=== PATIENT | male | born 1970 | race Caucasian/White ===

== ENCOUNTER → 2016-12-02 | Outpatient (CLI) | payer BC ==
--- NOTE | 2016-12-02 14:34 | XR ---
EXAMINATION TYPE: XR abdomen 1V DATE OF EXAM: 12/02/2016 COMPARISON: NONE HISTORY: Right-sided kidney stone TECHNIQUE: One view abdominal series FINDINGS: The osseous structures are intact. The bowel gas pattern is nonspecific. Calcification in the pelvis is likely vascular. Overlying bowel content obscures the renal outlines. However, there is a calcification centrally with in the left kidney measuring 5.7 mm. Punctate 2 mm calcification suspected within the right kidney. IMPRESSION: 1. Bilateral nephrolithiasis.
== END | disposition home or self-care (01) ==
LOC: RADXRMAIN 13:53
PROVIDERS: ATTEND Internal Medicine
DX: N20.0 Calculus of kidney (principal)
CPT/HCPCS: 74000

== ENCOUNTER → 2016-12-15 | Outpatient (CLI) | payer BC ==
--- NOTE | 2016-12-15 10:43 | CT ---
EXAMINATION TYPE: CT abdomen pelvis wo con DATE OF EXAM: 12/15/2016 COMPARISON: NONE HISTORY: Renal stone CT DLP: 393.10 mGycm Automated exposure control for dose reduction was used. TECHNIQUE: Helical acquisition of images was performed from the lung bases through the pelvis. FINDINGS: Lack of intravenous and oral contrast limits evaluation of both the solid and hollow viscer a. LUNG BASES: No significant abnormality is appreciated. LIVER/GB: No significant abnormality is appreciated. No evidence of radiopaque cholelithiasis. No int rahepatic biliary ductal dilatation. No evidence of hepatic steatosis. PANCREAS: No significant abnormality is seen. SPLEEN: No significant abnormality is seen. Subcentimeter splenule is seen adjacent to the [place] spl een. A benign finding. ADRENALS: No significant abnormality is seen. KIDNEYS: Within the right renal pelvis there is a 0.9 cm nonobstructing renal calculus as there is no evidence of hydronephrosis. Minimal uroepithelial thickening is also appreciated suggestive of react anastacia inflammatory change. Additionally within the right midpole there is a 4 mm calculus and within th e inferior pole there is a 2 mm nonobstructing calculus. No left-sided renal calculi are seen. FREE AIR: No free air is visualized ADENOPATHY: No greater than 1 cm short axis lymph nodes within the abdomen or pelvis. OSSEOUS STRUCTURES: Nonspecific sclerotic focus within the left iliac bone measures 9 mm on series 3 image 123. Smaller probable bone island is seen within the left iliac bone on series 3 image 134. Pun ctate probable bone islands are also noted within the right ischium and femoral heads. BOWEL: Few scattered sigmoid diverticula are present without pericolonic fat stranding. Moderate fei unt of retained stool is seen throughout the nondilated colon. Appendix is retrocecal and within norm al limits of size without periappendiceal fat stranding. OTHER: Diastases recti is seen with a 2 mm fat filled umbilical hernia. Abdominal aorta is of normal course and caliber. IMPRESSION: 1. THERE IS A 0.9 CM NONOBSTRUCTING RIGHT CALCULUS WITHIN THE RENAL PELVIS CREATING MINIMAL LIKELY RE ACTIVE UROEPITHELIAL THICKENING. ADDITIONAL NONOBSTRUCTIVE 4 MM AND 2 MM RIGHT RENAL CALCULI ARE SEEN . NO LEFT RENAL CALCULI. 2. FEW SCATTERED SIGMOID DIVERTICULA WITHOUT EVIDENCE OF ACUTE DIVERTICULITIS. 3. MULTIPLE NONSPECIFIC SCLEROTIC FOCI THAT MAY REPRESENT BONE ISLANDS WITHIN THE PELVIS.
== END | disposition home or self-care (01) ==
LOC: RADCTMAIN 09:41
PROVIDERS: ATTEND Urology
DX: N20.2 Calculus of kidney with calculus of ureter (principal); K57.30 Diverticulosis of large intestine without perforation or abscess without bleeding
CPT/HCPCS: 74176

== ENCOUNTER → 2017-01-20 | Outpatient (CLI) | payer BC ==
--- NOTE | 2017-01-20 09:37 | XR ---
EXAMINATION TYPE: XR KUB DATE OF EXAM: 01/20/2017 9:26 AM CLINICAL HISTORY: Recent right-sided lithotripsy TECHNIQUE: Single supine KUB image of the abdomen is obtained. COMPARISON: CT abdomen pelvis dated 12/15/2016 FINDINGS: The previously seen right renal calculus at the ureteropelvic junction has been surgically removed by lithotripsy. The other punctate right renal calculi measuring 4 and [address] mm [address] the recent CT of 12/15/2016 are not visualized, possibly due to technique or overlying bowel. No left-sided calculi are seen. Phleboliths are noted within the low right hemipelvis. Minimal degenerative changes of the thoracolumbar spine and femoral acetabular joints. Scattered gas is seen in non-distended small bowel loops. Gas and fecal material is seen in non-distended colon. IMPRESSION: 1. Nonvisualization of the previous obstructing 9 mm right ureteropelvic junction calculus due to the recent lithotripsy. Of note the remaining 4 and 3 mm right renal calculi are also not visualized, po ssibly due to technique or overlying bowel. No left renal calculi are noted. 2. Nonobstructive bowel gas pattern.
== END ==
LOC: RADXRMAIN 09:09
PROVIDERS: ATTEND Urology
DX: N20.0 Calculus of kidney (principal)
CPT/HCPCS: 74000

== ENCOUNTER → 2021-09-17 | Outpatient (CLI) | payer BC ==
--- NOTE | 2021-09-17 13:24 | XR ---
EXAMINATION TYPE: XR KUB DATE OF EXAM: 09/17/2021 Comparison: 01/20/2017 Clinical History: 51-year-old male complaining of right-sided kidney stone and hematuria, N200 Findings: Right-sided pelvic phleboliths are unchanged. Vague 1.1 cm calcification right paramedian mid abdomen . Nonobstructive bowel gas pattern. Mild overall stool burden. Impression: Vague 1.1 cm calcification right paramedian mid abdomen could be within the renal collecting system o r upper ureter. Clinically correlate.
== END | disposition home or self-care (01) ==
LOC: RADXRMAIN 09:58
PROVIDERS: ATTEND Urology
DX: N28.89 Other specified disorders of kidney and ureter (principal)
CPT/HCPCS: 74018

== ENCOUNTER → 2021-09-21 | Outpatient (CLI) | payer BC ==
[2021-09-21 15:14] LABS: Basophils # (A) 0.06 X 10*3/uL (0.00-0.10); Basophils % (A) 1.1 %; Eosinophils # (A) 0.31 X 10*3/uL (0.04-0.35); Eosinophils % (A) 5.7 %; HGB 14.4 g/dL (13.0-17.0); Immature Grans, Automated 0.2 %; Lymphocytes # (A) 1.94 X 10*3/uL (0.90-5.00); Lymphocytes % (A) 35.6 %; MCHC 32.7 g/dL (32.0-37.0); MCV 94.8 fL (80.0-97.0); Mean Platelet Volume 10.7 fL (9.5-12.2); Monocytes # (A) 0.38 X 10*3/uL (0.20-1.00); NRBC Per 100 WBC 0 /100 WBCS (0.0-0.0); Neutrophils # (A) 2.75 X 10*3/uL (1.80-7.70); Neutrophils % (A) 50.4 %; Platelet Count 227 X 10*3/uL (140-440); RBC 4.64 X 10*6/uL (4.40-5.60); RDW 12.5 % (11.5-14.5); WBC 5.45 X 10*3/uL (4.50-10.00)
[2021-09-21 15:19] LABS: African American GFR (CKD) 104.6 (60.0-200.0); Anion Gap 10.2 mmol/L (10.00-18.00); BUN/Creat Ratio 11.95 Ratio (12.00-20.00); Blood Urea Nitrogen 11.5 mg/dL (9.0-27.0); Calcium 9.6 mg/dL (8.7-10.3); Carbon Dioxide 25.9 mmol/L (20.0-27.5); Non-African American GFR(CKD) 90.3 (60.0-200.0); Potassium 4.5 mmol/L (3.5-5.5)
== END | disposition home or self-care (01) ==
LOC: LABPAT 08:25
PROVIDERS: ATTEND Urology
DX: Z01.812 Encounter for preprocedural laboratory examination (principal); N20.0 Calculus of kidney
CPT/HCPCS: 80048; 85025

== ENCOUNTER 2021-09-27 07:08 | Day surgery (SDC) | payer BC ==
[2021-09-23 10:09] VITALS: BMI 23.6
--- NOTE | 2021-09-26 21:53 | P.GSHP ---
History of Present Illness H&P Date: 09/26/21 Chief Complaint: Right flank pain The patient is a 51-year-old white male with a history of calcium oxalate urolithiasis. He has previously undergone ESWL on 2 occasions. He presents with a several month history of right flank discomfort. KUB x-ray reveals an 11 mm right renal pelvic calculus. Alternative treatment options were reviewed and he has elected to undergo ESWL. - Constitutional Constitutional: Denies chills, Denies fever - Gastrointestinal Gastrointestinal: Reports nausea, Denies vomiting - Genitourinary (Male) Genitourinary: Reports flank pain, Reports kidney stones Past Medical History Past Medical History: Cancer, Hypertension Additional Past Medical History / Comment(s): HX SKIN CANCER ON NECK. KIDNEY STONES. HTN-UNDER CONTROL AT THIS TIME History of Any Multi-Drug Resistant Organisms: None Reported Past Surgical History: Orthopedic Surgery Additional Past Surgical History / Comment(s): LT SHOULDER SX. COLONOSCOPY. LITHOTRIPSY X 2. SKIN CANCER REMOVED FROM NECK AREA Past Anesthesia/Blood Transfusion Reactions: No Reported Reaction Smoking Status: Never smoker - Past Family History Mother Family Medical History: No Reported History Medications and Allergies Home Medications Medication Instructions Recorded Confirmed Type No Known Home Medications 09/23/21 09/23/21 History Allergies Allergy/AdvReac Type Severity Reaction Status Date / Time No Known Allergies Allergy Verified 09/23/21 10:00 Surgical - Exam - General well developed, well nourished, no distress - Neck no masses, trachea midline - Respiratory normal respiratory effort - Abdomen Abdomen: soft, non tender, no guarding, no rigid, no rebound - Psychiatric oriented to time, oriented to person, oriented to place, speech is normal, memory intact Results - Imaging Abdominal x-ray: report reviewed, image reviewed Assessment and Plan (1) Calculus of kidney Status: Acute Code(s): N20.0 - CALCULUS OF KIDNEY SNOMED Code(s): 98332875 Plan: Right ESWL, to be performed by Dr. Li. The patient understands the procedure and is aware of potential risks, which include anesthesia, renal contusion, perinephric hematoma, treatment failure, incomplete fragmentation, and Steinstrasse. He is also aware of the possible need for secondary treatment.
[2021-09-27] MEDS ORDERED: ONDANSETRON 4 MG/2 ML VIAL IVP PRN (07:53)
[2021-09-27] MEDS ORDERED: HYDROmorphone 0.5 MG/0.5 ML SYRINGE IVP PRN (07:53)
[2021-09-27] MEDS ORDERED: DEXAMETHASONE SOD PHOSPHATE 4 MG/ML 1 ML VIAL IV ONE (07:53)
[2021-09-27] MEDS ORDERED: LIDOCAINE 1% (10MG/ML) FOR IV START INTRADERMA PRN (07:53)
[2021-09-27] MEDS ORDERED: LACTATED RINGERS 1,000 ML IV SCH (07:53)
--- NOTE | 2021-09-27 07:55 | XR ---
EXAMINATION TYPE: XR KUB DATE OF EXAM: 09/27/2021 7:31 AM INDICATION: Patient age:Male; 51 years old; Reason for study: N20.0; COMPARISON: 09/17/2021, CT abdomen pelvis 12/15/2016. TECHNIQUE: One radiographic view of the abdomen was obtained. FINDINGS: Unchanged location of 2 calcifications within the right pelvis. The 2 calcific densities pr ojecting over the right renal pelvis remains unchanged measuring 12 mm. Additional smaller densities also seen measuring 2 mm. These 2 densities projecting of the kidney were seen back in 2017 however t here may be minimally larger today given differences in technique. Nonobstructive bowel gas pattern. IMPRESSION: 1. Redemonstration of 2 renal collecting system calculi which are stable in position and mildly incr eased in size from 2017. 2. 2 calcific densities within the pelvis are also stable in size and position from 2017 CT.
[2021-09-27 08:01] VITALS: TEMP 98.2
[2021-09-27] MEDS ORDERED: GLYCOPYRROLATE 0.2 MG/ML 2 ML VIAL ONE (08:12)
[2021-09-27] MEDS ORDERED: MIDAZOLAM 2 MG/2 ML VIAL ONE (08:12)
[2021-09-27] MEDS ORDERED: KETAMINE 10 MG/ML 20 ML VIAL ONE (08:12)
[2021-09-27] MEDS ORDERED: fentaNYL (PF) 50 MCG/ML 2 ML AMP ONE (08:12)
[2021-09-27] MEDS ORDERED: PROPOFOL 10 MG/ML 20 ML VIAL IV ONE (08:12)
--- NOTE | 2021-09-27 08:46 | P.OP ---
Date of Procedure: 09/27/21 Preoperative Diagnosis: Right renal stone Postoperative Diagnosis: Same Procedure(s) Performed: Extracorporeal shockwave lithotripsy, 2500 shocks at energy level IV Anesthesia: MAC Surgeon: Johnny Li Pathology: none sent Condition: stable Disposition: PACU Indications for Procedure: Patient is 51. He has a history of stones. He has a 1 cm right renal pelvic stone. He comes for shockwave lithotripsy Description of Procedure: The patient is brought to the operative suite. On the lithotripsy table is given IV sedation. The stone was seen in 2 views of fluoroscopy. With the Dornier compact delta 2 lithotripter 2500 shocks at energy level IV administered. The stone fractures nicely. Then the procedure the patient awakened and returned recovery room good condition. He'll be discharged home upon recovery and follow-up in the office in one week with KUB
[2021-09-27 10:15] VITALS: BP 131/90; PULSE 52; RESP 18
== END 2021-09-27 10:37 | disposition home or self-care (01) ==
LOC: ORWHC2ENDO 07:08
PROVIDERS: ATTEND Urology
DX: N20.0 Calculus of kidney (principal); I10 Essential (primary) hypertension; Z85.828 Personal history of other malignant neoplasm of skin; Z79.899 Other long term (current) drug therapy
CPT/HCPCS: 74018; 50590; J2250; J1100; J2405; J3010; J2704

== ENCOUNTER 2021-09-27 13:31 | Emergency (ER) | payer BC ==
[2021-09-27 13:59] VITALS: PULSE 78
[2021-09-27] MEDS ORDERED: HYDROmorphone 0.5 MG/0.5 ML SYRINGE IVP STA (14:06)
[2021-09-27] MEDS ORDERED: SODIUM CHLORIDE 0.9% 500 ML 500 ML IV STA (14:06)
[2021-09-27] MEDS ORDERED: ONDANSETRON 4 MG/2 ML VIAL IVP STA (14:06)
[2021-09-27 14:28] LABS: Basophils % (A) 0 %; Eosinophils % (A) 0 %; HCT 43.6 % (39.0-53.0); HGB 14.3 gm/dL (13.0-17.5); Lymphocytes # (A) 0.6 k/uL (1.0-4.8); Lymphocytes % (A) 5 %; MCH 31.4 pg (25.0-35.0); MCHC 32.8 g/dL (31.0-37.0); MCV 95.7 fL (80.0-100.0); Mean Platelet Volume 7.5; Monocytes # (A) 0.1 k/uL (0-1.0); Monocytes % (A) 1 %; Neutrophils # (A) 10.3 k/uL (1.3-7.7); Neutrophils % (A) 93 %; Platelet Count 202 k/uL (150-450); RBC 4.55 m/uL (4.30-5.90); RDW 12.3 % (11.5-15.5); WBC 11.1 k/uL (3.8-10.6)
[2021-09-27 14:40] LABS: ALT 13 U/L (4-49); AST 22 U/L (17-59); African American GFR (CKD) >90 (>60 ml/min/1.73 sqM); Albumin 4.7 g/dL (3.5-5.0); Alkaline Phosphatase 91 U/L (38-126); Anion Gap 9 mmol/L; Blood Urea Nitrogen 13 mg/dL (9-20); Calcium 9.4 mg/dL (8.4-10.2); Carbon Dioxide 25 mmol/L (22-30); Chloride 101 mmol/L (98-107); Glucose 143 mg/dL (74-99); Non-African American GFR(CKD) >90 (>60 ml/min/1.73 sqM); Potassium 4.5 mmol/L (3.5-5.1); Sodium 135 mmol/L (137-145); Total Bilirubin 0.5 mg/dL (0.2-1.3); Total Protein 7.5 g/dL (6.3-8.2)
[2021-09-27 14:42] LABS: Partial Thromboplastin Time 23.1 sec (22.0-30.0); Prothrombin Time 10.6 sec (9.0-12.0)
--- NOTE | 2021-09-27 14:51 | ED ---
General Adult HPI - General Chief complaint: Recheck/Abnormal Lab/Rx Stated complaint: Post surgical pain Time Seen by Provider: 09/27/21 14:04 Source: patient, RN notes reviewed, old records reviewed Mode of arrival: ambulatory Limitations: no limitations - History of Present Illness Initial comments: 51-year-old male presenting for evaluation of severe right flank pain. Patient had lithotripsy performed for a large right renal stone. Patient states that he has had increased pain since the procedure. Patient's states this was an 11 millimeter stone. No fever. He's had nausea on his been unable to take his medication. - Related Data Previous Rx's Medication Instructions Recorded HYDROcodone/APAP 5-325MG [[place] 1 tab PO Q4HR PRN #10 tab 09/27/21 5-325] Tamsulosin [Flomax] 0.4 mg PO DAILY #10 cap 09/27/21 Allergies Allergy/AdvReac Type Severity Reaction Status Date / Time No Known Allergies Allergy Verified 09/27/21 16:00 Review of Systems ROS Statement: Those systems with pertinent positive or pertinent negative responses have been documented in the HPI. ROS Other: All systems not noted in ROS Statement are negative. Past Medical History Additional Past Medical History / Comment(s): kidney stones General Exam Limitations: no limitations General appearance: alert, in no apparent distress Head exam: Present: atraumatic, normocephalic Eye exam: Present: normal appearance, PERRL Neck exam: Present: normal inspection Respiratory exam: Present: normal lung sounds bilaterally. Absent: respiratory distress, wheezes Cardiovascular Exam: Present: regular rate, normal rhythm GI/Abdominal exam: Present: soft. Absent: distended, tenderness, guarding Extremities exam: Present: normal inspection, normal capillary refill. Absent: pedal edema Back exam: Present: CVA tenderness (R) Neurological exam: Present: alert, oriented X3 Psychiatric exam: Present: normal affect, normal mood Skin exam: Present: warm, dry, intact. Absent: cyanosis, diaphoretic Course Vital Signs 09/27/21 13:56 Temperature 98.7 F Pulse Rate 78 Respiratory 28 H Rate Blood Pressure 140/81 O2 Sat by Pulse 98 Oximetry - Consultations Consultation #1: Case discussed with Dr. Li . Medical Decision Making - Medical Decision Making 51-year-old male with right flank pain after lithotripsy. Patient given IV pain medication at the onset. Laboratory studies obtained. I did discuss case with Dr. Li no need for imaging at this time. Patient reevaluated, resting comfortably, pain completely resolved. He does have pain medication at home currently. Stable for discharge. - Lab Data Result diagrams: 09/27/21 14:19 09/27/21 14:19 Lab Results 09/27/21 09/27/21 09/27/21 Range/Units 14:19 14:19 14:19 WBC 11.1 H (3.8-10.6) k/uL RBC 4.55 (4.30-5.90) m/uL Hgb 14.3 (13.0-17.5) gm/dL Hct 43.6 (39.0-53.0) % MCV 95.7 (80.0-100.0) fL MCH 31.4 (25.0-35.0) pg MCHC 32.8 (31.0-37.0) g/dL RDW 12.3 (11.5-15.5) % Plt Count 202 (150-450) k/uL MPV 7.5 Neutrophils % 93 % Lymphocytes % 5 % Monocytes % 1 % Eosinophils % 0 % Basophils % 0 % Neutrophils # 10.3 H (1.3-7.7) k/uL Lymphocytes # 0.6 L (1.0-4.8) k/uL Monocytes # 0.1 (0-1.0) k/uL Eosinophils # 0.0 (0-0.7) k/uL Basophils # 0.0 (0-0.2) k/uL PT 10.6 (9.0-12.0) sec INR 1.0 (<1.2) APTT 23.1 (22.0-30.0) sec Sodium 135 L (137-145) mmol/L Potassium 4.5 (3.5-5.1) mmol/L Chloride 101 (98-107) mmol/L Carbon Dioxide 25 (22-30) mmol/L Anion Gap 9 mmol/L BUN 13 (9-20) mg/dL Creatinine 0.91 (0.66-1.25) mg/dL Est GFR (CKD-EPI)AfAm >90 (>60 ml/min/1.73 sqM) Est GFR (CKD-EPI)NonAf >90 (>60 ml/min/1.73 sqM) Glucose 143 H (74-99) mg/dL Calcium 9.4 (8.4-10.2) mg/dL Total Bilirubin 0.5 (0.2-1.3) mg/dL AST 22 (17-59) U/L ALT 13 (4-49) U/L Alkaline Phosphatase 91 (38-126) U/L Total Protein 7.5 (6.3-8.2) g/dL Albumin 4.7 (3.5-5.0) g/dL Disposition Clinical Impression: Calculus of kidney Disposition: HOME SELF-CARE Condition: Fair Instructions (If sedation given, give patient instructions): Kidney Stones (ED), Lithotripsy (DC) Is patient prescribed a controlled substance at d/c from ED?: No Referrals: Mary Connolly MD [Primary Care Provider] - 1-2 days Johnny Li MD [STAFF PHYSICIAN] - 1-2 days Time of Disposition: 16:07
[2021-09-27] MEDS ORDERED: SODIUM CHLORIDE 0.9% 500 ML 500 ML IV ONE (15:03)
[2021-09-27] MEDS ORDERED: KETOROLAC 15 MG/ML 1 ML VIAL IVP STA (15:03)
[2021-09-27 16:17] LABS: Appearance,Urine Cloudy (Clear); Bilirubin,Urine Negative (Negative); Blood,Urine Large (Negative); Color,Urine Light Red; Glucose,Urine (UA) Negative (Negative); Leukocyte Esterase,Urine Small (Negative); Mucus,Urine Occasional /hpf; Nitrite,Urine Negative (Negative); Protein,Urine 1+ (Negative); RBC,Urine >182 /hpf (0-5); Specific Gravity,Urine 1.016 (1.001-1.035); Urobilinogen,Urine <2.0 mg/dL (<2.0); WBC,Urine 9 /hpf (0-5)
[2021-09-27 16:29] LABS: Ketones,Urine 2+ (Negative)
[2021-09-27 16:42] VITALS: BP 138/88; RESP 18; TEMP 98.3
== END 2021-09-27 16:41 | disposition home or self-care (01) ==
LOC: EC 13:31
DX: N20.0 Calculus of kidney (principal)
CPT/HCPCS: 36415; 80053; 85025; 85610; 85730; 81001; 99284; 96374; 96375; 96361; J2405; J1885; J1170

== ENCOUNTER → 2021-10-04 | Outpatient (CLI) | payer BC ==
--- NOTE | 2021-10-04 08:29 | XR ---
EXAMINATION TYPE: XR KUB DATE OF EXAM: 10/04/2021 Comparison: 09/27/2021 Clinical History: 51-year-old male M200 Findings: Unchanged right-sided pelvic phleboliths. Moderate stool within the right side of the abdomen. Nonobs tructive bowel gas pattern. There is Steinstrasse seen at the right paramedian mid abdomen spanning 2 .6 cm. The previously seen 1.7 stone higher up is no longer identified. Impression: Interval breakup and inferior progression of the previous right-sided renal stone now with Steinstras se at the mid ureter spanning 2.6 cm.
== END | disposition home or self-care (01) ==
LOC: RADXRMAIN 07:36
PROVIDERS: ATTEND Urology
DX: N20.0 Calculus of kidney (principal); I87.8 Other specified disorders of veins
CPT/HCPCS: 74018

== ENCOUNTER → 2021-10-08 | Outpatient (CLI) | payer BC ==
--- NOTE | 2021-10-08 10:39 | XR ---
EXAMINATION TYPE: XR KUB DATE OF EXAM: 10/08/2021 Comparison: 10/04/2021 Clinical History: 51-year-old male N20.1 calculus of ureter Findings: The previous right-sided midureteral Steinstrasse is no longer seen. Mild stool burden. Stable phlebo lith in the right side of the pelvis. Impression: The previous right mid ureteric Steinstrasse is no longer seen.
== END | disposition home or self-care (01) ==
LOC: RADXRMAIN 07:11
PROVIDERS: ATTEND Urology
DX: N20.1 Calculus of ureter (principal)
CPT/HCPCS: 74018